=== PATIENT | female | born 1975 | race Caucasian/White ===

== ENCOUNTER 2023-06-12 21:38 | Emergency (ER) | payer BC ==
[~2023-06-12] VITALS: Ht 170.2 cm; Wt 130.2 kg
[2023-06-12 21:41] VITALS: BP 149/83
[2023-06-13] MEDS ORDERED: ALMACONE SUSPE355 ML PO (00:14)
== END 2023-06-13 00:27 | disposition home or self-care (01) ==
LOC: ER 21:38
DX: T18.128A Food in esophagus causing other injury, initial encounter (principal); X58.XXXA Exposure to other specified factors, initial encounter
CPT/HCPCS: 99283

== ENCOUNTER 2023-06-28 11:44 | Day surgery (SDC) | payer BC ==
[~2023-06-28] VITALS: Ht 170.2 cm; Wt 134.8 kg
[~2023-06-28 11:44] MED LIST: ALMACONE SUSPE355 ML PO; Colace100 MG PO; Lactated Ringer's 1,000 ML IV ONE; OMEP20ER PO; RIZATRIPTAN10 MG PO; Testosterone5 GM
[2023-06-28] MEDS ORDERED: ALBU90OI (12:01)
[2023-06-28] MEDS ORDERED: IBUP100S (12:02)
[2023-06-28] MEDS ORDERED: Lactated Ringer's 1,000 ML IV ONE (12:32)
[2023-06-28] MEDS ORDERED: Midazolam HCl 1MG / ML 2ML Vial ONE (12:34)
[2023-06-28] MEDS ORDERED: propofoL 50 ML IV ONE (12:56)
[2023-06-28 13:41] VITALS: BP 154/111
== END 2023-06-28 13:36 | disposition home or self-care (01) ==
LOC: ORSCSDS 11:44
PROVIDERS: Specialist
PROC: 0DB68ZX Excision of Stomach, Via Natural or Artificial Opening Endoscopic, Diagnostic (ICD-10-PCS; principal; 2023-06-28 13:00)
PROC: 0DB58ZX Excision of Esophagus, Via Natural or Artificial Opening Endoscopic, Diagnostic (ICD-10-PCS; principal; 2023-06-28 13:00)
DX: R13.10 Dysphagia, unspecified (principal); K21.00 Gastro-esophageal reflux disease with esophagitis, without bleeding; K22.10 Ulcer of esophagus without bleeding; K22.2 Esophageal obstruction; K44.9 Diaphragmatic hernia without obstruction or gangrene; K31.89 Other diseases of stomach and duodenum; E66.9 Obesity, unspecified; Z68.42 Body mass index [BMI] 45.0-49.9, adult; Z79.899 Other long term (current) drug therapy
CPT/HCPCS: 88305; 88342; J2250; J2704; J7120

== ENCOUNTER 2023-11-05 10:38 | Day surgery (SDC) | payer BC ==
[~2023-11-05] VITALS: Ht 170.2 cm; Wt 129.4 kg
[~2023-11-05 10:38] MED LIST changes: +ALBU90OI; +IBUP100S
[2023-11-05] MEDS ORDERED: Lidocaine HCl 4% 5 ML SDA ONE (11:14)
[2023-11-05] MEDS ORDERED: propofoL 50 ML IV ONE ×2 (11:21→12:01)
[2023-11-05] MEDS ORDERED: Lactated Ringer's 1,000 ML IV ONE (11:25)
--- NOTE | 2023-11-05 11:39 | NUR ---
11/05/23 [address] FIGUEROA, 4% LIDOCAINE PULLED FROM [facility]. DR FIGUEROA ADMINISTERED LIDOCAINE TO BACK UP THROAT PRIOR TO UPPER ENDOSCOPY
[2023-11-05 12:47] VITALS: BP 136/83
== END 2023-11-05 12:46 | disposition home or self-care (01) ==
LOC: ORSCSDS 10:38
PROVIDERS: Specialist
PROC: 0DJD8ZZ Inspection of Lower Intestinal Tract, Via Natural or Artificial Opening Endoscopic (ICD-10-PCS; principal; 2023-11-05 12:00)
PROC: 0DB58ZX Excision of Esophagus, Via Natural or Artificial Opening Endoscopic, Diagnostic (ICD-10-PCS; principal; 2023-11-05 12:00)
PROC: 0D758ZZ Dilation of Esophagus, Via Natural or Artificial Opening Endoscopic (ICD-10-PCS; principal; 2023-11-05 12:00)
DX: R13.10 Dysphagia, unspecified (principal); K22.2 Esophageal obstruction; K44.9 Diaphragmatic hernia without obstruction or gangrene; Z12.11 Encounter for screening for malignant neoplasm of colon; K57.30 Diverticulosis of large intestine without perforation or abscess without bleeding; K64.4 Residual hemorrhoidal skin tags; K64.8 Other hemorrhoids; Z83.719 Family history of colon polyps, unspecified; J45.909 Unspecified asthma, uncomplicated; E66.01 Morbid (severe) obesity due to excess calories; Z68.41 Body mass index [BMI] 40.0-44.9, adult; Z79.899 Other long term (current) drug therapy
CPT/HCPCS: 43249; 43239; G0121; 88305; C1726; J2001; J2704; J7120